=== PATIENT | male | born 1965 | race African-American/Black ===

== ENCOUNTER 2019-10-28 15:30 | Emergency (ER) | payer MEDICAID, OTHER ==
[~2019-10-28 15:30] MED LIST: HYDR-519 PO
== END 2019-10-28 17:19 | disposition left against medical advice (07) ==
LOC: ER 15:30
DX: M54.9 Dorsalgia, unspecified (principal); R10.9 Unspecified abdominal pain; Z53.21 Procedure and treatment not carried out due to patient leaving prior to being seen by health care provider

== ENCOUNTER 2019-10-31 22:04 | Emergency (ER) | payer MEDICAID, OTHER ==
[~2019-10-31] VITALS: Ht 193 cm; Wt 86.0 kg
[2019-11-01 02:13] VITALS: BP 101/66
== END 2019-11-01 03:27 | disposition left against medical advice (07) ==
LOC: ER 22:04
DX: Z53.21 Procedure and treatment not carried out due to patient leaving prior to being seen by health care provider (principal); I25.2 Old myocardial infarction; F17.200 Nicotine dependence, unspecified, uncomplicated; Z86.73 Personal history of transient ischemic attack (TIA), and cerebral infarction without residual deficits; Z98.890 Other specified postprocedural states

== ENCOUNTER 2023-01-24 00:11 | Emergency (ER) | payer MEDICAID, OTHER ==
[~2023-01-24] VITALS: Ht 188 cm; Wt 115.0 kg
[2023-01-24] MEDS ORDERED: SODIUM CHLORIDE 0.9% 1,000 ML IV ONE (00:45)
[2023-01-24 01:11] LABS: BASOPHILS % 0.2 % (0.0-2.0); EOSINOPHILS % 1.2 % (0.0-5.0); HEMOGLOBIN. 13.5 g/dL (14.0-18.0); LYMPHOCYTES % 34.5 % (20.0-50.0); MEAN CORPUSCULAR HEMOGLOBIN 26.3 pg (28.0-32.0); MEAN CORPUSCULAR VOLUME 80.1 fL (80.0-94.0); MEAN PLATELET VOLUME 7.9 fl (7.4-10.4); MONOCYTES % 11.4 % (2.0-8.0); NEUTROPHILS % 52.7 % (40.0-76.0); PLATELET 281 x1000/uL (130-400); RED BLOOD CELL COUNT 5.12 mill/uL (4.7-6.1); RED CELL DISTRIBUTION WIDTH 16.3 % (11.6-14.6)
[2023-01-24 01:25] LABS: CHLORIDE 109 mEq/L (98-107); ETHANOL BLOOD < 10 mg/dL
[2023-01-24] MEDS ORDERED: IPRATROPIUM/ALBUTEROL 0.5-3(2.5)MG/3ML NEB HHN PRN (05:30)
[2023-01-24] MEDS ORDERED: ACETAMINOPHEN 325MG TABLET PO PRN ×2 (05:30)
[2023-01-24] MEDS ORDERED: CLONIDINE 0.1MG TABLET PO PRN (05:30)
[2023-01-24] MEDS ORDERED: ONDANSETRON HCL 4MG/2ML INJ IV PRN (05:30)
[2023-01-24] MEDS ORDERED: ALBUTEROL (0.083%) 2.5MG/3ML NEB HHN PRN (05:45)
[2023-01-24] MEDS ORDERED: SODIUM CHLORIDE 0.9% 1,000 ML IV SCH (05:45)
[2023-01-24] MEDS ORDERED: IPRATROPIUM BROMIDE (0.02%) 0.5MG/2.5ML NEB HHN PRN (05:45)
[2023-01-24 06:19] LABS: CLARITY URINE CLEAR (CLEAR); COLOR URINE YELLOW (YELLOW); KETONES URINE TRACE (NEGATIVE); LEUKOCYTE ESTERASE URINE NEGATIVE (NEGATIVE); NITRITE URINE NEGATIVE (NEGATIVE); OCCULT BLOOD URINE NEGATIVE (NEGATIVE); PROTEIN URINE 1+ (NEGATIVE); SPECIFIC GRAVITY URINE 1.023 (1.005-1.030); UROBILINOGEN URINE 0.2 E.U./dL (0.2-1.0)
[2023-01-24 06:50] LABS: BASOPHILS % 0.6 % (0.0-2.0); EOSINOPHILS % 1.3 % (0.0-5.0); HEMATOCRIT. 38.3 % (42.0-52.0); HEMOGLOBIN. 12.3 g/dL (14.0-18.0); MEAN CORPUSCULAR HEMOGLOBIN 25.9 pg (28.0-32.0); MEAN CORPUSCULAR VOLUME 80.7 fL (80.0-94.0); MEAN PLATELET VOLUME 7.7 fl (7.4-10.4); MONOCYTES % 10.6 % (2.0-8.0); NEUTROPHILS % 46.5 % (40.0-76.0); PLATELET 240 x1000/uL (130-400); RED BLOOD CELL COUNT 4.74 mill/uL (4.7-6.1); RED CELL DISTRIBUTION WIDTH 16.3 % (11.6-14.6)
[2023-01-24 06:58] LABS: *AMPHETAMINES SCREEN URINE PRESUMTIVE POSITIVE (NEGATIVE); *BARBITURATES SCREEN URINE NEGATIVE (NEGATIVE); *BENZODIAZEPINES SCREEN URINE NEGATIVE (NEGATIVE); *COCAINE SCREEN URINE NEGATIVE (NEGATIVE); CANNABINOID URINE SCREEN PRESUMTIVE POSITIVE (NEGATIVE); METHADONE URINE SCREEN NEGATIVE (NEGATIVE); OPIATES URINE SCREEN NEGATIVE (NEGATIVE); PHENCYCLIDINE URINE SCREEN NEGATIVE (NEGATIVE)
[2023-01-24 07:03] LABS: CHLORIDE 107 mEq/L (98-107)
[2023-01-24 07:11] LABS: CREATINE KINASE MB FRACTION 11.3 ng/mL (0.5-3.6)
[2023-01-24 07:20] LABS: HDL CHOLESTEROL 44 mg/dL (40-59); LDL CHOLESTEROL 86 mg/dL (5-100); PHOSPHORUS 4.8 mg/dL (2.5-4.9); T4 FREE 1.04 ng/dL (0.76-1.46)
[2023-01-24 07:30] VITALS: BP 107/57
[2023-01-24 07:47] LABS: HEPATITIS B SURFACE ANTIGEN NEGATIVE
[2023-01-24] MEDS ORDERED: ENOXAPARIN 30MG/0.3ML SYR SUBCUT SCH (09:00)
[2023-01-24] MEDS ORDERED: ASPIRIN 325MG EC TABLET PO NR (09:00)
[2023-01-24] MEDS ORDERED: FAMOTIDINE 20MG TABLET PO SCH (09:00)
[2023-01-24] MEDS ORDERED: LOSARTAN POTASSIUM 50 MG TABLET PO SCH (09:00)
[2023-01-24] MEDS ORDERED: METOPROLOL TARTRATE 25MG TABLET PO SCH (09:00)
[2023-01-24 11:45] LABS: PROSTRATE SPECIFIC AG TOTAL 0.39 ng/mL (0.0-4.0)
[2023-01-24 19:06] LABS: FOLIC ACID (FOLATE) SERUM 17.9 ng/mL (>5.38)
[2023-01-24] MEDS ORDERED: ATORVASTATIN CALCIUM 40MG TABLET PO SCH (21:00)
== END 2023-01-24 08:16 | disposition left against medical advice (07) ==
LOC: ER 00:11 → EDBEDREQ 04:39 → CANRESERV 08:05 → ENRESERV 08:05 → ER 08:16 → CANBEDREQ 08:19
DX: I21.4 Non-ST elevation (NSTEMI) myocardial infarction (principal); R53.1 Weakness; I25.2 Old myocardial infarction; F12.10 Cannabis abuse, uncomplicated; I10 Essential (primary) hypertension; N17.9 Acute kidney failure, unspecified; R74.01 Elevation of levels of liver transaminase levels; E46 Unspecified protein-calorie malnutrition; D64.9 Anemia, unspecified; E87.20 Acidosis, unspecified; F17.210 Nicotine dependence, cigarettes, uncomplicated; Z68.32 Body mass index [BMI] 32.0-32.9, adult; Z20.822 Contact with and (suspected) exposure to COVID-19; Z86.73 Personal history of transient ischemic attack (TIA), and cerebral infarction without residual deficits; Z59.00 Homelessness unspecified
CPT/HCPCS: 36415; 71045; 80053; 80061; 80305; 80320; 81003; 82550; 82553; 82607; 82746; 83036; 83605; 83690; 83735; 83880; 84100; 84145; 84153; 84439; 84443; 84481; 84484; 85025; 86705; 86709; 86803; 86850; 86900; 86901; 87340; 87426; 93005; 96360; 96361; 99285; C9803; J7030; G0103; G0480

== ENCOUNTER 2024-06-24 20:03 | Inpatient (IN) | payer MEDICAID ==
[~2024-06-24] VITALS: Ht 193 cm; Wt 77.6 kg
[~2024-06-24 20:03] MED LIST changes: +ASPI-1497 PO
[2024-06-24 21:10] LABS: BASOPHILS % 0.5 % (0.0-2.0); EOSINOPHILS % 2.4 % (0.0-5.0); HEMATOCRIT. 34.4 % (42.0-52.0); HEMOGLOBIN. 11.2 g/dL (14.0-18.0); MEAN CORPUSCULAR HEMOGLOBIN 26.2 pg (28.0-32.0); MEAN CORPUSCULAR HGB CONC 32.5 g/dL (31.0-37.0); MEAN CORPUSCULAR VOLUME 80.6 fL (80.0-94.0); MEAN PLATELET VOLUME 7.7 fl (7.4-10.4); MONOCYTES % 14.4 % (2.0-8.0); NEUTROPHILS % 41.7 % (40.0-76.0); PLATELET 196 x1000/uL (130-400); RED BLOOD CELL COUNT 4.27 mill/uL (4.7-6.1); RED CELL DISTRIBUTION WIDTH 16.9 % (11.6-14.6); WHITE BLOOD COUNT 3.4 x1000/uL (4.5-11.0)
[2024-06-24 21:13] LABS: CHLORIDE 107 mEq/L (98-107); POTASSIUM 3.9 mEq/L (3.5-5.1); SODIUM 136 mEq/L (136-145)
[2024-06-24 21:14] LABS: CALCIUM 9.2 mg/dL (8.7-10.4); CARBON DIOXIDE 29 mEq/L (21-32)
[2024-06-24] MEDS: ACETAMINOPHEN 325MG TABLET PO NR (21:15)
[2024-06-24] MEDS: ONDANSETRON HCL 4MG/2ML INJ IM NR (21:15)
[2024-06-24 21:19] LABS: CREATININE 0.9 mg/dL (0.6-1.3); GLUCOSE 93 mg/dL (70-105); UREA NITROGEN BLOOD 8 mg/dL (9-23)
[2024-06-24 21:21] LABS: ETHANOL BLOOD < 10 mg/dL (<10)
[2024-06-24 21:42] LABS: TROPONIN I HIGH SENSITIVITY 75 ng/L (3.0-53)
[2024-06-24 21:46] LABS: PROTHROMBIN TIME 10.9 sec (9.6-11.0)
[2024-06-24] MEDS: TETRACAINE 0.5% OPHTH DROPS 4ML EACHEYE ONE (21:46)
[2024-06-24] MEDS: FLUORESCEIN SODIUM 1MG/STRIP BOTHEYE ONE (21:46)
[2024-06-25] MEDS: ASPIRIN 325MG EC TABLET PO NR (00:28)
[2024-06-25] MEDS ORDERED: DOCUSATE SODIUM 100MG CAPSULE PO PRN (02:15)
[2024-06-25] MEDS ORDERED: ONDANSETRON HCL 4MG/2ML INJ IV PRN (02:15)
[2024-06-25] MEDS ORDERED: MAGNESIUM/ALUMINUM HYDROXIDE/SIMETHICONE 30ML UDC PO PRN (02:15)
[2024-06-25] MEDS ORDERED: IPRATROPIUM/ALBUTEROL 0.5-3(2.5)MG/3ML NEB HHN PRN (02:15)
[2024-06-25] MEDS ORDERED: CLONIDINE 0.1MG TABLET PO PRN (02:15)
[2024-06-25] MEDS ORDERED: ACETAMINOPHEN 325MG TABLET PO PRN ×2 (02:15)
[2024-06-25] MEDS ORDERED: DEXTROSE 50% WATER 50ML SYRINGE IV PRN (06:30)
[2024-06-25] MEDS: BLOOD SUGAR DIAGNOSTIC STRIP TEST SCH (06:46)
[2024-06-25] MEDS: FAMOTIDINE 20MG TABLET PO SCH (06:46)
[2024-06-25] MEDS: INSULIN LISPRO 100 UNITS/ML SUBCUT SCH (07:15)
[2024-06-25 08:26] LABS: IRON 58 ug/dL (65-175)
[2024-06-25 08:27] LABS: LDL CHOLESTEROL 70 mg/dL (5-100); TRIGLYCERIDE 60 mg/dL (0-150)
[2024-06-25 08:28] LABS: CHOLESTEROL 126 mg/dL (<200); CREATINE KINASE 364 IU/L (46-171); CREATINE KINASE MB FRACTION 6.9 ng/mL (0.5-3.6); HDL CHOLESTEROL 45 mg/dL (>55)
[2024-06-25 08:29] LABS: TOTAL IRON BINDING CAPACITY 130 ug/dl (250-425)
[2024-06-25 08:30] LABS: VITAMIN B12 SERUM 290 pg/mL (211-911)
[2024-06-25 08:31] LABS: TROPONIN I HIGH SENSITIVITY 74 ng/L (3.0-53)
[2024-06-25] MEDS: CYANOCOBALAMIN 1000MCG TABLET PO SCH (10:05)
[2024-06-25] MEDS: SODIUM CHLORIDE 0.45% 1,000 ML IV SCH (10:05)
[2024-06-25] MEDS: FOLIC ACID 1MG TABLET PO SCH (10:05)
[2024-06-25] MEDS: ASPIRIN 81MG TABLET PO SCH (10:05)
[2024-06-25] MEDS: FERROUS SULFATE 325MG TABLET PO SCH (10:05)
[2024-06-25 16:19] LABS: CLARITY URINE CLEAR (CLEAR); COLOR URINE YELLOW (YELLOW); GLUCOSE URINE NEGATIVE (NEGATIVE); KETONES URINE NEGATIVE (NEGATIVE); LEUKOCYTE ESTERASE URINE NEGATIVE (NEGATIVE); NITRITE URINE NEGATIVE (NEGATIVE); OCCULT BLOOD URINE NEGATIVE (NEGATIVE); PROTEIN URINE NEGATIVE (NEGATIVE); SPECIFIC GRAVITY URINE 1.008 (1.005-1.030)
[2024-06-25 16:20] LABS: *AMPHETAMINES SCREEN URINE PRESUMPTIVE POSITIVE (NEGATIVE); *BARBITURATES SCREEN URINE NEGATIVE (NEGATIVE); *BENZODIAZEPINES SCREEN URINE NEGATIVE (NEGATIVE); *COCAINE SCREEN URINE NEGATIVE (NEGATIVE); CANNABINOID URINE SCREEN PRESUMPTIVE POSITIVE (NEGATIVE); ECSTASY MDMA SCREEN URINE NEGATIVE (NEGATIVE); METHADONE URINE SCREEN NEGATIVE (NEGATIVE); OPIATES URINE SCREEN NEGATIVE (NEGATIVE); PHENCYCLIDINE URINE SCREEN NEGATIVE (NEGATIVE)
[2024-06-25 17:33] LABS: CREATINE KINASE MB FRACTION 6.4 ng/mL (0.5-3.6)
[2024-06-25 17:53] LABS: TROPONIN I HIGH SENSITIVITY 72 ng/L (3.0-53)
[2024-06-25 18:40] VITALS: BP 144/66; PULSE 69; RESP 18; TEMP 36.6404
[2024-06-25 18:59] LABS: AMMONIA 28 uMol/L (<32); CREATINE KINASE MB FRACTION 6.5 ng/mL (0.5-3.6)
[2024-06-25 20:00] VITALS: BP 144/88; PULSE 81; RESP 19; TEMP 36.33624; O2SAT 98
[2024-06-26] VITALS: BP 106/60; PULSE 73; RESP 19; TEMP 36.55848; O2SAT 100
[2024-06-26 00:07] LABS: CREATINE KINASE MB FRACTION 7.3 ng/mL (0.5-3.6)
[2024-06-26 04:00] VITALS: BP 128/83; PULSE 79; RESP 20; TEMP 36.50292; O2SAT 98
[2024-06-26 05:58] LABS: BASOPHILS % 0.6 % (0.0-2.0); DIFFERENTIAL COMMENT 0; EOSINOPHILS % 2.5 % (0.0-5.0); HEMATOCRIT. 35.4 % (42.0-52.0); HEMOGLOBIN. 11.6 g/dL (14.0-18.0); LYMPHOCYTES % 43.6 % (20.0-50.0); MEAN CORPUSCULAR HEMOGLOBIN 26.1 pg (28.0-32.0); MEAN CORPUSCULAR HGB CONC 32.7 g/dL (31.0-37.0); MEAN CORPUSCULAR VOLUME 79.8 fL (80.0-94.0); MEAN PLATELET VOLUME 7.6 fl (7.4-10.4); MONOCYTES % 14.6 % (2.0-8.0); NEUTROPHILS % 38.7 % (40.0-76.0); PLATELET 199 x1000/uL (130-400); RED BLOOD CELL COUNT 4.44 mill/uL (4.7-6.1); WHITE BLOOD COUNT 3.5 x1000/uL (4.5-11.0)
[2024-06-26 06:13] LABS: CALCIUM 8.3 mg/dL (8.7-10.4); CARBON DIOXIDE 27 mEq/L (21-32); CHLORIDE 106 mEq/L (98-107); SODIUM 135 mEq/L (136-145)
[2024-06-26 06:19] LABS: GLUCOSE 79 mg/dL (70-105); UREA NITROGEN BLOOD 10 mg/dL (9-23)
[2024-06-26 06:21] LABS: PHOSPHORUS 3.4 mg/dL (2.5-4.9); T4 FREE 0.95 ng/dL (0.89-1.76); THYROID STIMULATING HORMONE 0.44 uIU/mL (0.55-4.78)
[2024-06-26 08:00] VITALS: BP 152/60; PULSE 80; RESP 16; TEMP 36.44736; O2SAT 99
[2024-06-26 12:00] VITALS: BP 146/62; PULSE 82; RESP 17; TEMP 36.55848; O2SAT 98
[2024-06-26 16:00] VITALS: BP 140/58; PULSE 80; RESP 16; TEMP 36.44736; O2SAT 99
[2024-06-26 20:00] VITALS: BP 149/88; PULSE 79; RESP 18; TEMP 36.61404; O2SAT 98
[2024-06-26] MEDS: KETOROLAC 15MG/ML VIAL IV PRN (21:48)
[2024-06-26] MEDS: NITROGLYCERIN 0.4MG TABLET SL SL NR (23:46)
[2024-06-27] VITALS: BP 138/83; PULSE 77; RESP 19; TEMP 36.61404; O2SAT 98
[2024-06-27 04:00] VITALS: BP 147/88; PULSE 73; RESP 18; TEMP 36.3918; O2SAT 98
[2024-06-27 08:00] VITALS: BP 134/82; PULSE 78; RESP 17; TEMP 36.114; TEMP 36.11400; O2SAT 97
[2024-06-27] MEDS ORDERED: ASPI-1497 PO (11:37)
[2024-06-27] MEDS ORDERED: CYAN-50 PO (11:37)
[2024-06-27] MEDS ORDERED: FOLI-43 PO (11:37)
[2024-06-27] MEDS ORDERED: FAMO-287 MT (11:37)
[2024-06-27] MEDS ORDERED: FERR-63 PO (11:37)
[2024-06-27 13:57] LABS: CHLORIDE 106 mEq/L (98-107); POTASSIUM 4.6 mEq/L (3.5-5.1); SODIUM 136 mEq/L (136-145)
[2024-06-27 13:58] LABS: CALCIUM 8.9 mg/dL (8.7-10.4); CARBON DIOXIDE 30 mEq/L (21-32)
[2024-06-27 14:03] LABS: GLUCOSE 86 mg/dL (70-105); UREA NITROGEN BLOOD 15 mg/dL (9-23)
[2024-06-27 14:06] LABS: CREATINE KINASE 392 IU/L (46-171)
[2024-06-27 15:27] VITALS: BP 139/83; PULSE 72; TEMP 97.5; O2SAT 100
== END 2024-06-27 15:41 | disposition home or self-care (01) | DRG 82 ==
LOC: ER 20:03 → 5WST 06-25 00:56 → EDBEDREQ 06-25 00:59 → 7EST 06-25 17:53
PROVIDERS: ADMIT Preventive Medicine Clinical Informatics; ATTEND Preventive Medicine Clinical Informatics
DX: E11.36 Type 2 diabetes mellitus with diabetic cataract (principal); I21.A1 Myocardial infarction type 2; M62.82 Rhabdomyolysis; S02.2XXA Fracture of nasal bones, initial encounter for closed fracture; D64.9 Anemia, unspecified; D72.819 Decreased white blood cell count, unspecified; M47.26 Other spondylosis with radiculopathy, lumbar region; Z98.41 Cataract extraction status, right eye; Z20.822 Contact with and (suspected) exposure to COVID-19; I25.10 Atherosclerotic heart disease of native coronary artery without angina pectoris; R53.81 Other malaise; F19.10 Other psychoactive substance abuse, uncomplicated; M54.50 Low back pain, unspecified; W18.39XA Other fall on same level, initial encounter; I25.2 Old myocardial infarction; Z59.00 Homelessness unspecified; Z87.891 Personal history of nicotine dependence; Y93.89 Activity, other specified; Y99.8 Other external cause status; Y92.008 Other place in unspecified non-institutional (private) residence as the place of occurrence of the external cause
CPT/HCPCS: 36415; 70486; 71045; 72100; 80048; 80061; 80305; 80320; 81003; 82140; 82550; 82553; 82607; 82746; 82962; 83036; 83540; 83550; 83605; 83735; 83880; 84100; 84145; 84439; 84443; 84484; 85025; 87426; 93005; 97162; 97166; 99285; J1885; J2405; G0480

== ENCOUNTER 2024-10-31 14:50 | Emergency (ER) | payer MEDICAID ==
[~2024-10-31] VITALS: Ht 182.9 cm; Wt 70.0 kg
[~2024-10-31 14:50] MED LIST changes: +AMLO5TAB88 PO; +ASPI-1406 PO; -ASPI-1497 PO; +ATOR20TA PO; +CYAN-50 PO; +FERR-63 PO; +FOLI-43 PO; -HYDR-519 PO; +LOSA50TA41 PO; +NAPR-681 PO
[2024-10-31 14:51] VITALS: BP 131/77; PULSE 116; RESP 18; TEMP 98.3; O2SAT 98
[2024-10-31] MEDS ORDERED: LEVO750T68 MT (16:27)
[2024-11-06] MEDS ORDERED: TUSSL MT (16:14)
[2024-11-07] MEDS ORDERED: ASPI-1406 MT (17:05)
== END 2024-10-31 16:15 | disposition home or self-care (01) ==
LOC: ER 14:52
DX: J18.9 Pneumonia, unspecified organism (principal); I10 Essential (primary) hypertension; D64.9 Anemia, unspecified; Z59.00 Homelessness unspecified; Z79.899 Other long term (current) drug therapy
CPT/HCPCS: 71045; 82962; 99284

== ENCOUNTER 2025-06-01 11:32 | Emergency (ER) | payer MEDICAID ==
[~2025-06-01] VITALS: Ht 177.8 cm; Wt 85.0 kg
[~2025-06-01 11:32] MED LIST changes: -AMLO5TAB88 PO; -ASPI-1406 PO; -ATOR20TA PO; -CYAN-50 PO; -FERR-63 PO; -FOLI-43 PO; -LOSA50TA41 PO; -NAPR-681 PO; +TUSSL MT
[2025-06-01 11:35] VITALS: BP 136/92; PULSE 78; RESP 16; TEMP 36.3; O2SAT 100
[2025-06-01] MEDS ORDERED: ACET-2708 MT (12:20)
[2025-06-01] MEDS ORDERED: IBUP-2028 MT (12:24)
[2025-06-01] MEDS: KETOROLAC 30MG/ML VIAL IM ONE (12:31)
[2025-06-01] MEDS: ACETAMINOPHEN 500MG TABLET PO ONE (12:32)
== END 2025-06-01 13:30 | disposition home or self-care (01) ==
LOC: ER 11:32
DX: M79.671 Pain in right foot (principal); I10 Essential (primary) hypertension; Z79.899 Other long term (current) drug therapy
CPT/HCPCS: 99283; 96372; J1885